=== PATIENT | male | born 1975 | race Caucasian/White ===

== ENCOUNTER 2024-01-08 17:01 | Emergency (ER) | payer SELFPAY ==
[~2024-01-08] VITALS: Ht 165.1 cm; Wt 88.5 kg
[2024-01-08] MEDS ORDERED: CYCL5TAB PO (21:05)
[2024-01-08] MEDS ORDERED: IBUP-1955 PO (21:05)
[2024-01-08 21:14] VITALS: BP 119/69; TEMP 98.5; O2SAT 99
== END 2024-01-08 21:14 | disposition home or self-care (01) ==
LOC: ER 17:03
DX: S06.0X0A Concussion without loss of consciousness, initial encounter (principal); S13.8XXA Sprain of joints and ligaments of other parts of neck, initial encounter; S33.5XXA Sprain of ligaments of lumbar spine, initial encounter; S29.012A Strain of muscle and tendon of back wall of thorax, initial encounter; Z79.899 Other long term (current) drug therapy; V89.2XXA Person injured in unspecified motor-vehicle accident, traffic, initial encounter; Y93.89 Activity, other specified; Y92.89 Other specified places as the place of occurrence of the external cause; Y99.8 Other external cause status
CPT/HCPCS: 72125; 72131; A4606; A4663